=== PATIENT | female | born 2005 | race Caucasian/White ===

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

== ENCOUNTER 2023-05-08 18:21 | Emergency (ER) | payer OTHER ==
[2023-05-08] MEDS: Prochlorperazine 5 MG Tab PO ONE (20:31)
[2023-05-08] MEDS: diphenhydrAMINE 50 MG/ML SDV IVPUSH ONE (20:32)
[2023-05-08] MEDS: Sodium Chloride 0.9% 1,000 ML IV ONE (20:34)
[2023-05-08] MEDS: Ketorolac 30 MG/ML SDV IVPUSH ONE (20:34)
[2023-05-08] MEDS: Sodium Chloride 0.9% 10 ML Syringe FLUSH PRN (20:40)
[2023-05-08 21:29] VITALS: BP 117/70; PULSE 56
== END 2023-05-08 22:02 | disposition home or self-care (01) ==
LOC: DL.ED 18:21
DX: G43.909 Migraine, unspecified, not intractable, without status migrainosus (principal)
CPT/HCPCS: 96361; 96374; 96375; 99282; 99283-25; J1200; J1885; J3490; J7030; Q0164